=== PATIENT | female | born 1980 ===

== ENCOUNTER 2021-04-08 07:06 | Day surgery (SDC) | payer OTHER ==
[~2021-04-08 07:06] MED LIST: AVALIDE 300-121 EACH PO; NORVASC5 MG PO
[2021-04-08] MEDS ORDERED: DOXYCYCLINE HY100 M2 PO (14:09)
[2021-04-08] MEDS ORDERED: ULTRACET PO (14:10)
== END 2021-04-08 19:25 | disposition home or self-care (01) ==
LOC: CIR.AMB 07:06
PROVIDERS: ATTEND Obstetrics & Gynecology
DX: D25.0 Submucous leiomyoma of uterus (principal); N84.0 Polyp of corpus uteri; Z20.822 Contact with and (suspected) exposure to COVID-19